=== PATIENT | female | born 1955 | race Caucasian/White ===

== ENCOUNTER 2022-06-25 18:30 | Emergency (ER) | payer OTHER, SELFPAY ==
[2022-06-25 18:41] VITALS: BP 143/95; PULSE 96; RESP 18; TEMP 36.4; O2SAT 95; BMI 25.0
--- NOTE | 2022-06-25 19:05 | ED.SOB ---
HPI - SOB/Dyspnea General Chief Complaint: Shortness of Breath/Dyspnea Stated Complaint: Trouble breathing, Wheezing Time Seen by Provider: 06/25/22 18:49 History of Present Illness HPI Narrative: This 66-year-old female comes in reporting shortness of breath with exertion. She states that this is been progressing over the past few months. She did go to her primary doctor who checked out her heart and she states that everything seemed okay there. At rest she does not feel short of breath but when getting her dog out to walk 1 mi she does have dyspnea with exertion. She thought this was initially deconditioning or the warm summer air but yet her symptoms have persisted now into June and despite regular walks she is continuing to have the same symptoms. She does not report any fevers. She does not have chest pain. She does not have any pedal edema. She does not report orthopnea, cough, or respiratory infection symptoms. She states that she did smoke but this was 40 years ago and has quit since then. She did have an albuterol inhaler that is outdated. She use this today without a spacer and states that she got maybe 10 minutes of improvement from that medicine. Related Data Previous Rx's Medication Instructions Recorded methylprednisolone 4 mg tablets in See Rx Instructions PO .COMPLEX 06/25/22 a dose pack (Medrol (Ricardo)) #21 ea Allergies Allergy/AdvReac Type Severity Reaction Status Date / Time No Known Drug Allergies Allergy Verified 06/25/22 18:47 Review of Systems Status of ROS: Reports: 10 or more systems reviewed and unremarkable except as noted in History and below Narrative: Constitutional: No fevers, no weight gain or loss. Eyes: No discharge. No vision changes. HENT: No congestion, no sore throat, no ear pain. Cardiovascular: No chest pain, no palpitations. Respiratory: No cough. Shortness of breath as described above. Gastrointestinal: No abdominal pain, no vomiting, no diarrhea. Genitourinary: No dysuria, no hematuria. Musculoskeletal: Normal range of motion. Skin: No rashes, no pruritis. Neurological: No dizziness, weakness, sensory change, speech change. Endo/Heme/Allergies: No bruising or bleeding. No polydipsia. Pysch: no suicidality, no anxiety, no insomnia. All other systems reviewed and are negative. PFSH PFSH Social History Smoking Status: Former smoker Do you use any of these nicotine containing products: None Second hand tobacco smoke exposure: No How often do you have a drink containing alcohol: 2-4 times a month AUDIT-C Alcohol total score: 2 Non-prescribed substance use: denies use Exam Narrative: Exam Narrative: Constitutional: Well-developed, well-nourished, no acute distress. HEENT: Normocephalic, atraumatic. Neck: Normal range of motion. Nontender. Supple. Heart: Regular. No murmurs. Normal rate. Intact distal pulses. Lungs: Clear to auscultation. No chest discomfort. No wheezes, rhonchi, or rales. She seems to have increased effort for inspiration. Abdomen: Normal bowel sounds. Nontender. No rebound tenderness. Genitalia: Deferred. Back: No midline tenderness. Normal range of motion. Extremities: Normal range of motion. No injury. Skin: Intact. No rash. Warm. No erythema or pallor. Neurologic: No altered sensation. No weakness. Alert and oriented. Psychiatric: No suicidality. No anxiety or depression. No insomnia. Nursing notes and vitals signs are reviewed. Const: Vital Signs, click to edit/add: Vital Signs - 24 hr 06/25/22 18:41 Temperature 97.6 F Pulse Rate [Right Pulse Oximeter] 96 Respiratory Rate 18 Blood Pressure [Ri ght Upper Arm] 143/95 H Pulse Oximetry 95 Oxygen Delivery Me thod Room Air Course Vital Signs Vital signs: Initial Vital Signs Temperature 97.6 F 06/25/22 18:41 Temperature Source Temporal Artery Scan 06/25/22 18:41 Pulse Rate 96 06/25/22 18:41 Respiratory Rate 18 06/25/22 18:41 Blood Pressure 143/95 H 06/25/22 18:41 Blood Pressure Mean 111 06/25/22 18:41 Blood Pressure Position Sitting 06/25/22 18:41 Pulse Oximetry 95 06/25/22 18:41 Oxygen Delivery Method 06/25/22 18:41 Vital Signs Temperature 97.6 F 06/25/22 18:41 Pulse Rate 96 06/25/22 18:41 Respiratory Rate 18 06/25/22 18:41 Blood Pressure 143/95 H 06/25/22 18:41 Pulse Oximetry 95 06/25/22 18:41 Oxygen Delivery Method 06/25/22 18:41 Temperature 97.6 F 06/25/22 18:41 Pulse Rate 96 06/25/22 18:41 Respiratory Rate 18 06/25/22 18:41 Blood Pressure 143/95 H 06/25/22 18:41 Pulse Oximetry 95 06/25/22 18:41 Oxygen Delivery Method 06/25/22 18:41 MDM - SOB/Dyspnea MDM Narrative Medical decision making narrative: This patient arrives reporting persistent shortness of breath over the past several months that is especially noted when she exerts herself with walking. She arrives with normal vital signs. Her exam is also rather normal except to seems to be a slight increased use of accessory muscles for inspiration. I discussed lab and imaging options which the patient declined for now and states that she prefers to follow-up with her regular physician to continue this process. She did receive a DuoNeb and an oral dose of dexamethasone 10 mg. She reported great relief rather immediately upon receiving the nebulizer treatment. Her symptoms are likely due to asthma like reactive airway disease. I did discuss the role of pulmonary function testing and encouraged to follow-up with her primary physician. She did receive a prescription for albuterol inhaler and I reviewed proper technique for administering the medication with a spacer. She also received a prescription for Medrol Dosepak. Discharge Plan Discharge Clinical Impression: COPD (chronic obstructive pulmonary disease) Patient Disposition: Home, Self-Care Condition: Improved Additional Instructions: Use medications as instructed. Follow-up with primary physician for ongoing management. Return if worsening. Prescriptions: New methylprednisolone [Medrol (Ricardo)] 4 mg tablets,dose pack See Rx Instructions .ROUTE .COMPLEX Qty: 21 0RF Rx Instructions: orally per package directions Follow Up/Referrals: Provider,Not a Local [Primary Care Provider] - Stand Alone Forms: [employer] Info Instructions
[2022-06-25] MEDS: dexAMETHasone 10 MG/ML inj PO (19:16)
[2022-06-25] MEDS: IPRAT-ALBUT 0.5-2.5 MG/3 ML NEB 1 NEB IH (19:16)
--- NOTE | 2022-06-25 20:01 | ED.NURSE ---
Pt requesting pharmacy to be switched to [facility] instead of [facility]. [facility] Call to [facility] and voicemail left in order to cancel script at [facility] location.
== END 2022-06-25 20:03 | disposition home or self-care (01) ==
PROVIDERS: Emergency Provider Emergency Medicine Emergency Medical Services
DX: J44.9 Chronic obstructive pulmonary disease, unspecified (principal)
CPT/HCPCS: 94640; 99283; 99284; J1100

== ENCOUNTER 2022-07-10 08:40 | Emergency (ER) | payer OTHER, SELFPAY ==
[2022-07-10] VITALS (7 sets, daily range): BP systolic 125–145; BP diastolic 83–111; PULSE 84–109; RESP 20; TEMP 36.3; O2SAT 94–100
[2022-07-10] MEDS: IPRAT-ALBUT 0.5-2.5 MG/3 ML NEB 1 NEB IH (09:00)
--- NOTE | 2022-07-10 09:23 | ED_ITS ---
HPI - General Adult General Time Seen by Provider: 09:23 Date Seen: 07/10/22 Chief complaint: Shortness of Breath/Dyspnea Stated complaint: Trouble breathing, asthma Time Seen by Provider: 07/10/22 08:46 Source: patient, RN notes reviewed and old records reviewed Mode of arrival: ambulatory Limitations: no limitations History of Present Illness HPI narrative: Patient is a 66-year-old female coming in with complaint of shortness of breath/noisy breathing. She had audible wheezing per nursing staff on arrival in they did ask for DuoNeb which was approved. By the time I see her, she states her breathing has improved significantly. She states her breathing is look no longer noisy. She had been in to our ER 2 weeks ago, was seen on June 25, was given a Medrol Dosepak which she states helped moderately for the week she was on it. Last week she felt okay but yesterday the wheezing/difficulty breathing started up again. There have been no fevers or ch ills, no cough or cold symptoms that she is aware of. She has been dealing with some shortness of breath since this last spring noted with walking the dog. She reportedly has done some cardiac workup. She saw her primary care provider yesterday and was given a referral to ENT but that is out until September. She is not had pulmonary function testing done. She states she was using the albuterol over this last week but it would maybe only relieve her symptoms for about 10 minutes or so. She used to smoke but quit 40 years ago. She has not been diagnosed with any respiratory process such as COPD or asthma. I have reviewed her note as stated from the ER on June 25. Have reviewed with her that I will be doing a bit more of workup today, will look at some cardiac markers as well as be doing at least do chest x-ray. If we have respiratory therapy and house, may ask them to assist us with some peak flows or anything that they have for suggestions. Related Data Home Medications Medication Instructions Recorded Confirmed albuterol sulfate 90 mcg/actuation 1 inh inhalation Q4-6H PRN 07/10/22 07/10/22 breath activated powder inhaler Previous Rx's Medication Instructions Recorded albuterol sulfate 2.5 mg/3 mL 2.5 mg (3 mL) inhalation Q4H PRN 07/10/22 (0.083 %) solution for nebulization #90 mL azithromycin 250 mg tablet See Rx Instructions PO .COMPLEX #6 07/10/22 tabs ipratropium 0.5 mg-albuterol 3 mg 3 ml inhalation QID PRN #90 mL 07/10/22 (2.5 mg base)/3 mL nebulization soln prednisone 20 mg tablet 20 mg PO BID #10 tabs 07/10/22 Allergies Allergy/AdvReac Type Severity Reaction Status Date / Time No Known Drug Allergies Allergy Verified 07/10/22 08:56 Review of Systems Status of ROS: Reports: 10 or more systems reviewed and unremarkable except as noted in History and below [facility] Social History Smoking Status: Former smoker Do you use any of these nicotine containing products: None Second hand tobacco smoke exposure: No How often do you have a drink containing alcohol: 2-4 times a month AUDIT-C Alcohol total score: 2 Non-prescribed substance use: denies use Exam Const: Vital Signs, click to edit/add: Vital Signs - 24 hr 07/10/22 08:53 07/10/22 09:34 07/10/22 10:14 Temperature 97.3 F L Pulse Rate [Pulse Oximeter] 109 H 98 Respiratory Rate 20 Blood Pressure [Ri ght Upper Arm] 145/111 H Pulse Oximetry 94 96 96 Oxygen Delivery Me thod Room Air Room Air 07/10/22 10:36 07/10/22 10:38 07/10/22 11:02 Temperature Pulse Rate [Pulse Oximeter] 91 84 Respiratory Rate Blood Pressure [Ri ght Upper Arm] 125/83 Pulse Oximetry 95 100 Oxygen Delivery Me thod Room Air Room Air Documenting provider has reviewed patient's vital signs: yes Common normals: no apparent distress, average body habitus, oriented x3, no limitations, healthy appearing, alert and well nourished General appearance: cooperative, comfortable, well kempt and well developed HENMT: Common normals: normocephalic, head/scalp atraumatic, hearing grossly normal bilaterally, external ears normal, EAC's normal, TM's normal bilaterally, external nose normal, nasal mucous membranes and turbinates normal, moist oral mucous membranes, oropharynx normal, dentition normal and gingiva normal Head and scalp: normocephalic and atraumatic Nose: external nose normal and nasal mucous membranes and turbinates normal External ear: external ears normal External auditory canal: EAC's normal Tympanic membrane: TM's normal bilaterally Eye: Common normals: PERRL, EOMs intact bilaterally, conjunctivae normal and no scleral icterus Conjunctiva: conjunctiva(e) normal Pupil: PERRL Neck & C-Spine: Common normals: full ROM, no lymphadenopathy, supple, no meningeal signs, no JVD and thyroid normal Thyroid: thyroid normal Resp: Common normals: normal respiratory effort, no retractions, no use of accessory muscles and clear to auscultation bilaterally (But does have a prolonged expiratory phase, slightly distant breath sounds) Effort & inspection: able to speak in complete sentences Auscultation: clear to auscultation bilaterally (But does have a prolonged expiratory phase, slightly distant breath sounds) Other: Note my respiratory examination is after a DuoNeb. Cardio: Common normals: no JVD, regular rate, regular rhythm, S1 normal heart sound, S2 normal heart sound, no gallops, no clicks, no murmurs and peripheral pulses 2+ throughout Rate: regular rate Rhythm: regular rhythm Heart sounds: S1 normal and S2 normal Peripheral pulses: pulses 2+ throughout Extremity: Other: No calf tenderness, no lower extremity edema. Neuro: Common normals: oriented x3 Sensorium/orientation: alert Meningeal signs: no meningeal signs Psych: Appearance: well kempt Course Course Hospital Course: We will have this patient on pulse oximetry. Will obtain an EKG, full complement of labs including some cardiac markers. I will be getting a portable chest x-ray. We will see if respiratory therapy can assist us in some peak flows. I do think that this is likely respiratory for this patient in she may have some underlying COPD that is developing. We will obtain the triple swab to ensure no infectious etiology. At this time, do wonder if she really maybe needs outpatient full formal PFTs which we cannot provide in the ED here. Reevaluation(s) Reevaluation #1: Nursing staff reported to me that the patient was wheezy again. I did go back and re-evaluate. Her lung sounds are diminished, does have end-expiratory wheezing. Reviewed with her her chest x-ray is not showing any acute abnormality. Respiratory therapy had worked with her and thought that she needed nebs at home and outpatient workup with PFTs. Her peak flow here was at best 250 which is significantly reduced. At this time, am going to give her an albuterol nebulization, give her 40 mg oral prednisone. Time: 10:45 Reevaluation #2: Reviewed with patient the need for follow-up outpatient PFTs. She will need to be off the steroids before doing these however. We discussed the broad vast differential with her acute wheezing. It could be anything from asthma, allergic asthma, 1 of the entities of COPD. I do think with her mildly elevated white count and the fact that she has been off steroids for over a week, would recommend an antibiotic despite a negative chest x-ray. Will treat with azithromycin as it does have some other pulmonary properties. She at this time is not wheezing any longer, lungs are clear but still with prolonged expiratory phase and mildly distant breath sounds. Respiratory therapy did show her how to do peak flows and will have her start monitoring these. Time: 11:32 Vital Signs Vital signs: Initial Vital Signs Temperature 97.3 F L 07/10/22 08:53 Temperature Source Temporal Artery Scan 07/10/22 08:53 Pulse Rate 109 H 07/10/22 08:53 Respiratory Rate 20 07/10/22 08:53 Blood Pressure 145/111 H 07/10/22 08:53 Blood Pressure Mean 122 07/10/22 08:53 Blood Pressure Position Sitting 07/10/22 08:53 Pulse Oximetry 94 07/10/22 08:53 Oxygen Delivery Method 07/10/22 08:53 Vital Signs Temperature 97.3 F L 07/10/22 08:53 Pulse Rate 109 H 07/10/22 08:53 Respiratory Rate 20 07/10/22 08:53 Blood Pressure 145/111 H 07/10/22 08:53 Pulse Oximetry 94 07/10/22 08:53 Oxygen Delivery Method 07/10/22 08:53 Temperature 97.3 F L 07/10/22 08:53 Pulse Rate 84 07/10/22 11:02 Respiratory Rate 20 07/10/22 08:53 Blood Pressure 125/83 07/10/22 10:38 Pulse Oximetry 100 07/10/22 11:02 Oxygen Delivery Method 07/10/22 11:02 Medical Decision Making Lab Data Lab results reviewed: Yes I reviewed the patient's lab results Labs: Lab Results 07/10/22 07/10/22 07/10/22 Range/Units 09:35 10:03 10:14 WBC 12.11 H (4.50-11.00) K/uL RBC 4.53 (4.00-5.20) m/uL Hgb 13.2 (12.0-16.0) gm/dL Hct 40.8 (33.0-51.0) % MCV 90 (80-100) fL MCH 29 (26-34) pg MCHC 32 (32-36) gm/dL RDW Coeff of Ruth Ann 12.8 (11.5-15.5) % Plt Count 396 (140-440) K/uL Neut % (Auto) 77.6 H (42.0-72.0) % Lymph % (Auto) 14.3 L (20-44) % [place] % (Auto) 3.7 (0.0-11.0) % Eos % (Auto) 4.1 (0.0-7.0) % Baso % (Auto) 0.2 (0.0-3.0) % Neut # (Auto) 9.40 H (1.7-7.0) K/uL Lymph # (Auto) 1.70 (0.90-2.90) K/uL [place] # (Auto) 0.40 (0.00-0.90) K/UL Eos # (Auto) 0.50 (0.00-0.50) K/uL Baso # (Auto) 0.00 (0.00-0.30) K/uL Abs Immat Gran (auto) 0.00 (0.00-0.30) K/uL Imm/Tot Granulo (auto) 0.1 % Sodium (135-149) mmol/L Potassium (3.6-5.1) mmol/L Chloride (96-114) mmol/L Carbon Dioxide (20-32) mmol/L BUN (7-30) mg/dL Creatinine (0.5-1.5) mg/dL Estimated GFR ml/min Glucose (60-115) mg/dL Calcium (8.4-10.6) mg/dL Total Bilirubin (0.1-1.5) mg/dL AST (12-35) U/L ALT (4-35) U/L Alkaline Phosphatase (40-150) U/L C-Reactive Protein (0.5-1.0) mg/dL NT-Pro-B Natriuret Pep (0-125) PG/mL Total Protein (6.0-8.3) g/dL Albumin (3.3-5.0) g/dL SARS-CoV-2 (PCR) Negative SARS-CoV-2 (Negative) Influenza Type A (PCR) Negative PCR FLU A (Negative) Influenza Type B (PCR) Negative PCR FLU B (Negative) RSV (PCR) Negative PCR RSV (Negative) POC Troponin I 0.00 L (0.01-0.04) ng/ml 07/10/22 07/10/22 Range/Units 10:14 10:14 WBC (4.50-11.00) K/uL RBC (4.00-5.20) m/uL Hgb (12.0-16.0) gm/dL Hct (33.0-51.0) % MCV (80-100) fL MCH (26-34) pg MCHC (32-36) gm/dL RDW Coeff of Ruth Ann (11.5-15.5) % Plt Count (140-440) K/uL Neut % (Auto) (42.0-72.0) % Lymph % (Auto) (20-44) % [place] % (Auto) (0.0-11.0) % Eos % (Auto) (0.0-7.0) % Baso % (Auto) (0.0-3.0) % Neut # (Auto) (1.7-7.0) K/uL Lymph # (Auto) (0.90-2.90) K/uL [place] # (Auto) (0.00-0.90) K/UL Eos # (Auto) (0.00-0.50) K/uL Baso # (Auto) (0.00-0.30) K/uL Abs Immat Gran (auto) (0.00-0.30) K/uL Imm/Tot Granulo (auto) % Sodium 143 (135-149) mmol/L Potassium 4.6 (3.6-5.1) mmol/L Chloride 107 (96-114) mmol/L Carbon Dioxide 28 (20-32) mmol/L BUN 9 (7-30) mg/dL Creatinine 0.6 (0.5-1.5) mg/dL Estimated GFR 100 ml/min Glucose 100 (60-115) mg/dL Calcium 9.7 (8.4-10.6) mg/dL Total Bilirubin 0.3 (0.1-1.5) mg/dL AST 22 (12-35) U/L ALT 17 (4-35) U/L Alkaline Phosphatase 114 (40-150) U/L C-Reactive Protein < 0.5 L (0.5-1.0) mg/dL NT-Pro-B Natriuret Pep 31 (0-125) PG/mL Total Protein 7.4 (6.0-8.3) g/dL Albumin 4.5 (3.3-5.0) g/dL SARS-CoV-2 (PCR) (Negative) Influenza Type A (PCR) (Negative) Influenza Type B (PCR) (Negative) RSV (PCR) (Negative) POC Troponin I (0.01-0.04) ng/ml Imaging Data Chest x-ray: Attestation: I have reviewed the pertinent imaging results. My impression: On my preliminary read, hyperinflation but no acute infiltrate, no flattening of the diaphragms. Await Radiology over-read. Radiologist's impression: Patient: SANDRA SU Facility:?[facility] Patient ID:?[id number] Site Patient ID:?[id number]. Site :?[id number] Study:?XRay Chest -07/10/2022 10:09:18 AM Ordering Physician:Nayeli Lee Final Report: INDICATION: Trouble breathing. Asthma. TECHNIQUE: Sitting portable AP image of the chest. COMPARISON: None. FINDINGS: Lungs and pleural spaces clear. Heart, mediastinum and pulmonary vessels normal. No significant osseous abnormality. IMPRESSION: Negative chest. Dictated by Rufino Murcia MD @ 07/10/2022 10:28:16 AM (Electronic Signature) ECG Data Attestation: I personally reviewed and interpreted this ECG as follows: (Sinus rhythm, 91 beats per minute. No acute ischemia concerns on this EKG. QT corrected 442 milliseconds.) Prior ECG tracings: not available for review Critical Care Time Critical Care Time Critical Care Time: No Discharge Plan Discharge Clinical Impression: Increasing shortness of breath, Diffuse wheezing Patient Disposition: Home, Self-Care Condition: Improved Instructions: How to Use a Metered-Dose Inhaler and a Spacer (ED), Wheezing (ED) Additional Instructions: Need to take oral prednisone as prescribed, start is a through my sin and take as prescribed. You will need to get a nebulizer and take DuoNebs up to 4 times a day. You can use albuterol nebulization every 2 hours in between the DuoNebs if needed. It is imperative that you follow-up with your primary care provider. I absolutely think that you need formal pulmonary function test done, may need to see pulmonology. In the interim, if you have increasing difficulty breathing, shortness of breath, develops purulent or productive cough and have fever with it, do need to be re-evaluated. Continue to monitor your peak flows as shown to you by Respiratory therapy, document them. It will be interesting to see if your peak flows are improving with the current treatments. You can also monitor her pre and post nebulization peak flows intermittently. This type documentation may be helpful in your diagnosis and treatment. Activity Level: Activity as Tolerated Prescriptions: New prednisone 20 mg tablet 20 mg PO BID Qty: 10 0RF Rx Instructions: start 07/11/22 azithromycin 250 mg tablet See Rx Instructions .ROUTE .COMPLEX Qty: 6 0RF Rx Instructions: For 250 mg dose pack: take 500 mg today (day 1), then 250 mg for 4 days (days 2-5) albuterol sulfate 2.5 mg /3 mL (0.083 %) solution for nebulization 2.5 mg inhalation Q4H PRNQty: 90 0RF ipratropium-albuterol 0.5 mg-3 mg(2.5 mg base)/3 mL solution for nebulization 3 ml inhalation QID PRNQty: 90 0RF No Action albuterol sulfate 90 mcg/actuation aerosol powdr breath activated 1 inh inhalation Q4-6H PRN Follow Up/Referrals: Provider,Not a Local [Primary Care Provider] - Stand Alone Forms: [employer] Info Instructions
--- NOTE | 2022-07-10 09:30 | ED.NURSE ---
Bilateral lungs sounds improved after duoneb. Bilateral wheezes prior to neb, after neb, lung sounds clear.
--- NOTE | 2022-07-10 09:34 | CRLHL7_ITS ---
For Patients: As a result of the Century Cures Act, medical imaging exams and procedure reports are released immediately into your electronic medical record. You may view this report before your referring provider. If you have questions, please contact your health care provider. INDICATION: Trouble breathing. Asthma. TECHNIQUE: Sitting portable AP image of the chest. COMPARISON: None. FINDINGS: Lungs and pleural spaces clear. Heart, mediastinum and pulmonary vessels normal. No significant osseous abnormality. IMPRESSION: Negative chest. Dictated by Rufino Murcia MD @ 07/10/2022 10:28:16 AM (Electronically Signed)
[2022-07-10 10:31] LABS: Basophils Percent Auto 0.2 % (0.0-3.0); Eosinophils Percent Auto 4.1 % (0.0-7.0); Hematocrit 40.8 % (33.0-51.0); Hemoglobin* 13.2 gm/dL (12.0-16.0); Immature Granulocytes Pct Auto 0.1 %; Lymphocytes Percent Auto 14.3 % (20-44); Mean Corpuscular HGB Conc 32 gm/dL (32-36); Mean Corpuscular Hemoglobin 29 pg (26-34); Mean Corpuscular Volume 90 fL (80-100); Monocytes Percent Auto 3.7 % (0.0-11.0); Neutrophils Percent Auto 77.6 % (42.0-72.0); Platelet Count* 396 K/uL (140-440); RDW Coefficient of Variation % 12.8 % (11.5-15.5); Red Blood Count 4.53 m/uL (4.00-5.20); White Blood Count* 12.11 K/uL (4.50-11.00)
[2022-07-10 10:33] LABS: Slide Review Reflex No
--- NOTE | 2022-07-10 10:40 | ED.NURSE ---
Audible wheezing heard again from pt. Inspiratory and expiratory wheezes on pt L side, expiratory wheezing on pt R side. MD notified.
[2022-07-10 10:43] LABS: Albumin* 4.5 g/dL (3.3-5.0); Chloride* 107 mmol/L (96-114); Potassium* 4.6 mmol/L (3.6-5.1); Sodium* 143 mmol/L (135-149)
[2022-07-10 10:45] LABS: Creatinine* 0.6 mg/dL (0.5-1.5); Estimated Glomerular Filt Rate 100 ml/min
[2022-07-10 10:46] LABS: Alanine Aminotransferase* 17 U/L (4-35); Alkaline Phosphatase* 114 U/L (40-150); Aspartate Amino Transferase* 22 U/L (12-35); Bilirubin Total* 0.3 mg/dL (0.1-1.5); Blood Urea Nitrogen* 9 mg/dL (7-30); Carbon Dioxide* 28 mmol/L (20-32); Glucose* 100 mg/dL (60-115); Total Protein* 7.4 g/dL (6.0-8.3)
[2022-07-10 10:47] LABS: Calcium* 9.7 mg/dL (8.4-10.6)
[2022-07-10 10:47] LABS: PCR FLU A Negative PCR FLU A (Negative); PCR FLU B Negative PCR FLU B (Negative); PCR RSV Negative PCR RSV (Negative)
[2022-07-10 10:48] LABS: SARS PCR* Negative SARS-CoV-2 (Negative)
[2022-07-10 10:51] LABS: C Reactive Protein* < 0.5 mg/dL (0.5-1.0)
[2022-07-10] MEDS: predniSONE 10 MG TABLET 40 MG PO (10:52)
[2022-07-10] MEDS: ALBUTEROL SULFATE 2.5 MG/3 ML VIAL.NEB NEB (10:53)
[2022-07-10 10:55] LABS: NT Pro B Type NatriureticPept* 31 PG/mL (0-125)
--- NOTE | 2022-07-10 11:10 | ED.NURSE ---
Pt lung sounds improved and clear again after 2nd neb treatment.
== END 2022-07-10 11:58 | disposition home or self-care (01) ==
PROVIDERS: Emergency Provider Family Medicine
DX: R06.02 Shortness of breath (principal); R06.2 Wheezing
CPT/HCPCS: 36415; 71045; 80053; 83880; 85025; 86140; 87502; 87634; 87635; 93005; 94640; 94761; 99284; J7512